=== PATIENT | male | born 1960 | race Caucasian/White ===

== ENCOUNTER 2017-01-06 09:18 | Emergency (ER) | payer OTHER ==
--- NOTE | 2017-01-06 12:48 | ED CLINICAL REPORT ---
Clinical Report - Physicians/Mid Levels [facility] [address] [place] [address] 01/06/2017 9:20 Patient: CHEL FLORES Time Seen: 0948. Arrived- By private vehicle. Historian- patient. HISTORY OF PRESENT ILLNESS Chief Complaint: VOMITING and DIARRHEA. This started past few days and is still present. It was abrupt in onset and has been intermittent but is not gone now. No recent travel. He has had nausea, vomiting, diarrhea and mild abdominal pain. The pain is described as located in the epigastrium. No black stools, bloody stools, constipation, flank pain or history of possible bad food exposure. Has not recently been camping or on antibiotics. He has had contact with a sick individual. (possibly at work ([employer])). The illness is described as severe. Similar symptoms previously: None. Recent medical care: Not recently seen/assessed. REVIEW OF SYSTEMS No headache or skin rash. All systems otherwise negative, except as recorded above. PAST HISTORY See nurses notes. Medications: Hydrocodone-Acetaminophen Oral. Meloxicam Oral. Allergies: Codeine. SOCIAL HISTORY Never smoker. No alcohol use or drug use. No recent travel. Is a local resident. works at the [employer]. FAMILY HISTORY (no family history of autoimmune disease or inflammatory bowel disease). ADDITIONAL NOTES The nursing notes have been reviewed. PHYSICAL EXAM Vital Signs: 01/06/2017 09:28 BP: 125/76. HR: 76. RR: 18. O2 saturation: 100%. Temp: 97.9 F. Pain level now: 7/10. Blood pressure normal. Oxygen saturation normal. Appearance: Alert. Oriented X3. No acute distress. (well build. muscular. polite. cooperative. non-toxic.). Eyes: Pupils equal, round and reactive to light. Eyes normal inspection. ENT: Ears normal. Nose normal. Pharynx normal. Neck: Normal inspection. Neck supple. CVS: Normal heart rate and rhythm. Heart sounds normal. Pulses normal. Respiratory: No respiratory distress. Breath sounds normal. No rales, rhonchi or wheezes. Abdomen: Soft and nontender. No mass. No rebound tenderness or guarding. (hyperactive bowel sounds. Negative stone's. No tenderness at Mcburney's.). Skin: Skin warm and dry. Normal skin color. No rash. Normal skin turgor. LABS, X-RAYS, AND EKG Laboratory Tests: UA-Culture if indicated: (TRAVON: 01/06/2017 10:50) ( [facility] 01/06/2017 11:37) Final results Test Result Flag Units (Reference) URINE COLOR ANNETTA URINE APPEARANCE CLEAR URINE GLUCOSE NEGATIVE (NEGATIVE) URINE BILIRUBIN NEGATIVE (NEGATIVE) URINE KETONE NEGATIVE (NEGATIVE) URINE SPECIFIC GRAVITY >= 1.030 (1.010-1.030) URINE PH 6.0 (5.0-8.0) URINE PROTEIN 2+ (NEGATIVE) URINE UROBILINOGEN 0.2 EU/dL (0.2-1.0) URINE NITRITE NEGATIVE (NEGATIVE) URINE BLOOD NEGATIVE (NEGATIVE) URINE LEUK ESTERASE NEGATIVE (NEGATIVE) URINE RBC RARE rbc/hpf (0-1) URINE WBC 3-5 wbc/hpf (0-1) URINE EPITHELIAL CELLS 0-1 EPI/hpf (0-5) URINE BACTERIA MODERATE (2+ TO 3+) (NONE SEEN) URINE COMMENT CULTURE INDICATED 2+ MUCUS1-3 HYALINE CASTS / LPFRARE FINE GRANULAR CAST /LPFURINE CULTURES ARE SET-UP BASED ON THE FOLLOWING CRITERIA:POSITIVE NITRITEPOSITIVE LEUKOCYTE ESTERASEGREATER THAN 10 WHITE BLOOD CELLSMODERATE (2+) OR GREATER BACTERIA CBC w Diff: (TRAVON: 01/06/2017 09:40) ( [facility] 01/06/2017 10:02) Final results Test Result Flag Units (Reference) WHITE BLOOD COUNT 8.8 K/uL (4.5-11.5) RED BLOOD COUNT 5.65 M/uL (4.50-5.90) HEMOGLOBIN 17.1 gm/dL (13.5-17.5) HEMATOCRIT 49.6 % (41.0-53.0) MEAN CELL VOLUME 88 fL (80-100) MEAN CORPUSCULAR HGB 30 pg (26-34) MEAN CORPUSCULAR HGB CONC 34 g/dL (31-37) RED CELL DISTRIBUTION WIDTH 12.3 % (11.6-14.8) PLATELET COUNT 246 K/uL (150-400) NEUTROPHIL % 92.4 H % (50-75) LYMPH % 2.8 L % (25-40) MONO % 4.6 % (3-14) EOSINOPHIL % 0.2 % (0-4) BASOPHIL % 0 % (0-2) CPK: (TRAVON: 01/06/2017 09:40) ( MsgRcvd 01/06/2017 11:09) Final results Test Result Flag Units (Reference) CPK 185 U/L (24-260) CMP: (TRAVON: 01/06/2017 09:40) ( MsgRcvd 01/06/2017 10:10) Final results Test Result Flag Units (Reference) GLUCOSE 128 H mg/dL (70-110) BUN 25 H mg/dL (7-18) CREATININE 1.1 mg/dL (0.6-1.3) Estimated GFR >60 mL/min Estimated GFR- >60 mL/min Note: Persistent reduction over 3 months in eGFR<60 mL/min/1.73 m2 defines CKD. Patients with eGFR values>=60 mL/min/1.73 m2 may also have CKD if evidence ofpersistent proteinuria. Additional information may be foundat www.kidney.org. SODIUM 142 mmol/L (136-145) POTASSIUM 4.2 mmol/L (3.5-5.1) CHLORIDE 106 mmol/L (98-107) CARBON DIOXIDE 24 mmol/L (21-32) CALCIUM 9.7 mg/dL (8.5-10.1) TOTAL PROTEIN 8.9 H g/dL (6.4-8.2) ALBUMIN 4.4 g/dL (3.3-5.0) BILIRUBIN, TOTAL 1.0 mg/dL (0.0-1.0) ALKALINE PHOSPHATASE 73 U/L (46-116) AST (SGOT) 37 U/L (15-37) ALT (SGPT) 52 U/L (12-78) LIPASE 112 U/L (73-393) . PROGRESS AND PROCEDURES Course of Care: the patient is a pleasant 56-year-old male no pertinent past medical history presenting for a vaginal nausea vomiting and diarrhea. At this time differential diagnosis includes gastritis versus hepatobiliary pathology or urinary tract infection. Patient will be given fluids here in the emergency department for thelikely dehydration from the amount of nausea and vomiting patient has been having as well as diarrhea. Medications for nausea and vomiting as well as pain also be provided. Patient is agreeable to the treatment and plan. Patient's workup was noted to be unremarkable. No elevation in Patient's white blood cell count. Hemoglobin and hematocrit noted to be normal. No urinary tract infection. Patient does have adequate kidney function however the BUN/creatinine ratio is greater than 20. Likely patient has prerenal azotemia. Will likely improve with the IV hydration patient has been receiving here in the emergency department. Patient had some improvement with symptoms here in the emergency department however needed additional medication while here. Vital signs here in the emergency Department unremarkable. Patient was offered to stay here longer in the emergency department for further monitoring and watching however patient does not need to be admitted at this time. Head discussion with patient in regards his workup here in the emergency department including diagnosis, home care, follow-up, and return precautions. All questions have been answered. The patient expressed understanding of these instructions and was agreeable to them. Prior to patient's departure from the emergency department his repeat abdominal exam is benign. No other acute abnormalities noted on patient's repeat evaluation. Patient is stable for outpatient management. Vital signs here in the emergency department remain normal. Patient was contacted on [phone] at approximately 9:30 PM. Patient reports having worsening diarrhea yesterday however has improved today. Patient reports that he has a follow-up appointment tomorrow. Patient reports that his symptoms are controlled. No blood or bile in the vomit or diarrhea. Reports that the vomiting has significantly improved. Does not need any refills of medications. No further concerns. Disposition: Discharged. Condition: good. CLINICAL IMPRESSION Vomiting with nausea. Diarrhea (acute). Acute epigastric abdominal pain. Moderate dehydration Acute urinary tract infection. INSTRUCTIONS Warnings: GENERAL WARNINGS: Return or contact your physician immediately if your condition worsens or changes unexpectedly, if not improving as expected, or if other problems arise. SPECIFICALLY, return if you develop pain, fever, vomiting, the inability to keep fluids down, blood in vomitus, blood in diarrhea, fainting or lightheadedness. Your Current Medications: CONTINUE TAKING THE FOLLOWING MEDICATIONS: Hydrocodone-Acetaminophen Oral. Meloxicam Oral. Prescription Medications: Cipro 500 mg: take 1 tab orally every 12 hours for 10 days. No refills. Substitution is permissible. (Disp 20 tabs) Concord 5 mg / 325 mg tablets: take 1 orally every 6 hours as needed for pain. Dispense twelve (12). No refill. Substitution is permissible. Phenergan 25 mg tablets: take 1 orally every 8 hours as needed for nausea or vomiting. Dispense twenty (20). No refill. Substitution is permissible. (Will make you sleepy. Use with caution.) Follow-up: Return to the emergency department as needed. Follow up with your doctor in three days. Reason for referral: recheck today's concerns. Summary of care provided to patient via paper. Screening today revealed the patient's blood pressure to be in the normal range. The patient should follow up with a primary care provider for blood pressure management. Understanding of the discharge instructions verbalized by patient. (Electronically signed by Siva Ramirez Dr. 01/08/2017 21:37) Addenda for CHEL FLORES VisitID: [id number] Date: 01/06/2017 01/06/2017 15:52 Pts called, stated pt is having loose stool (5 times) ERMD aware, told to try Immodium. Also advised to return to ER if pt is not feeling better. (Electronically signed by Quincy Mcclelland R.N. 01/06/2017 15:52)
--- NOTE | 2017-01-06 12:49 | ED ORDER SUMMARY ---
..... Patient: CHLE FLORES OrderSheet [facility] VisitID: [id number] [place] [address] 56y, M Registration Date/Time: 01/06/2017 ORDER SHEET Weight: 86.1 kg (stated) Allergies: Codeine GENERAL ORDERS: CBC w Diff Urgent (09:36 01/06/2017 JBoardley R.N. per protocol) (Ack 9:38 PWeiler ER Tech1) (9:42 JSanders R.N.) CMP Urgent (09:36 01/06/2017 JBoardley R.N. per protocol) (Ack 9:38 PWeiler ER Tech1) (9:42 JSanders R.N.) UA-Culture if indicated Urgent (09:47 01/06/2017 JBoardley R.N. per protocol) (Ack 9:49 PWeiler ER Tech1) (10:53 JBoardley R.N.) Lipase Urgent (09:53 01/06/2017 Jhony Bernal) (Ack 9:56 PWeiler ER Tech1) (10:15 JBoardley R.N.) CPK Urgent (10:53 01/06/2017 Jhony Bernal) (10:53 JBoardley R.N.) (Ack 10:54 PWeiler ER Tech1) MEDICATION ORDERS: Phenergan IV 25 mg (HIGH ALERT MEDICATION, NOW) (10:45 01/06/2017 Jhony Bernal) (Ack 10:46 JBoardley R.N.) (10:53 JBoardley R.N.) IV FLUIDS: IV NS : initial bolus none -, then 1000 mL/hr for X1 (NOW) (09:35 01/06/2017 JBoardley R.N. per protocol) (Ack 9:36 JBoardley R.N.) (9:47 JBoardley R.N.) Zofran IV 4 mg (NOW) (09:36 01/06/2017 JBoardley R.N. per protocol) (Ack 9:36 JBoardley R.N.) (9:47 JBoardley R.N.) IV NS : initial bolus 1000 mL (1000 mL/hr), then none - for X1 (NOW) (09:53 01/06/2017 Jhony Bernal) (Ack 9:57 JBoardley R.N.) (Cancelled: Duplicate Order9:58 JBoardley R.N.) Zofran IV 4 mg (NOW) (09:53 01/06/2017 Jhony Bernal) (Cancelled: Duplicate Order9:57 LEONoardlekrishna R.N.) IV NS : initial bolus none -, then 1000 mL/hr for X1 (NOW); Routine (10:14 01/06/2017 JBoardley R.N. verbal order read back to Jhony Bernal) (10:15 JBoardley R.N.) Morphine IV 4 mg (HIGH ALERT MEDICATION, NOW) (10:57 01/06/2017 Jhony Bernal) (Ack 10:57 JBoardley R.N.) (11:00 JBoardley R.N.) ORDER SHEET NOTES: [Electronically signed by Quincy Mcclelland R.N. (13:08 01/06/2017)] [Electronically signed by Siva Ramirez Dr. (21:37 01/08/2017)] [Electronically locked/signed by Quincy Mcclelland R.N. (13:08 01/06/2017)]
--- NOTE | 2017-01-06 12:49 | ED ORDER SUMMARY ---
..... Patient: CHEL FLORES OrderSheet [facility] VisitID: [id number] [place] [address] 56y, M Registration Date/Time: 01/06/2017 ORDER SHEET Weight: 86.1 kg (stated) Allergies: Codeine GENERAL ORDERS: CBC w Diff Urgent (09:36 01/06/2017 JBoardley R.N. per protocol) (Ack 9:38 PWeiler ER Tech1) (9:42 JSanders R.N.) CMP Urgent (09:36 01/06/2017 JBoardley R.N. per protocol) (Ack 9:38 PWeiler ER Tech1) (9:42 JSanders R.N.) UA-Culture if indicated Urgent (09:47 01/06/2017 JBoardley R.N. per protocol) (Ack 9:49 PWeiler ER Tech1) (10:53 JBoardley R.N.) Lipase Urgent (09:53 01/06/2017 Jhony Bernal) (Ack 9:56 PWeiler ER Tech1) (10:15 JBoardley R.N.) CPK Urgent (10:53 01/06/2017 Jhony Bernal) (10:53 JBoardley R.N.) (Ack 10:54 PWeiler ER Tech1) MEDICATION ORDERS: Phenergan IV 25 mg (HIGH ALERT MEDICATION, NOW) (10:45 01/06/2017 Jhony Bernal) (Ack 10:46 JBoardley R.N.) (10:53 JBoardley R.N.) IV FLUIDS: IV NS : initial bolus none -, then 1000 mL/hr for X1 (NOW) (09:35 01/06/2017 JBoardley R.N. per protocol) (Ack 9:36 JBoardley R.N.) (9:47 JBoardley R.N.) Zofran IV 4 mg (NOW) (09:36 01/06/2017 JBoardley R.N. per protocol) (Ack 9:36 JBoardley R.N.) (9:47 JBoardley R.N.) IV NS : initial bolus 1000 mL (1000 mL/hr), then none - for X1 (NOW) (09:53 01/06/2017 Jhony Bernal) (Ack 9:57 JBoardley R.N.) (Cancelled: Duplicate Order9:58 JBoardley R.N.) Zofran IV 4 mg (NOW) (09:53 01/06/2017 Jhony Bernal) (Cancelled: Duplicate Order9:57 LEONoardlekrishna R.N.) IV NS : initial bolus none -, then 1000 mL/hr for X1 (NOW); Routine (10:14 01/06/2017 JBoardley R.N. verbal order read back to Jhony Bernal) (10:15 JBoardley R.N.) Morphine IV 4 mg (HIGH ALERT MEDICATION, NOW) (10:57 01/06/2017 Jhony Bernal) (Ack 10:57 JBoardley R.N.) (11:00 JBoardley R.N.) ORDER SHEET NOTES: [Electronically signed by Quincy Mcclelland R.N. (13:08 01/06/2017)] [Electronically signed by Siva Ramirez Dr. (21:37 01/08/2017)] [Electronically locked/signed by Quincy Mcclelland R.N. (13:08 01/06/2017)]
--- NOTE | 2017-01-06 12:49 | ED NURSING NOTES ---
Clinical Report - Nurses [facility] [address] [place] [address] 01/06/2017 9:20 [id number] Triage time 09:28. Acuity: LEVEL 3. Chief Complaint: ABDOMINAL PAIN, NAUSEA, VOMITING and DIARRHEA and (Leg cramps and confusion.). 09:29 01/06/17. 09:01/06/17. Alert. No acute distress. SEPSIS SCREEN: Sepsis Screen. Negative (no infection suspected/documented). --09:35 Quincy Mcclelland R.N. 09:28 01/06/17. BP: 125/76. HR: 76. RR: 18. O2 saturation: 100% on room air. Temp: 97.9 F (oral). Pain level now: 03/31. --09:35 Quincy Mcclelland R.N. SERGEY COMA SCORE: [place] Coma Scale: 15- eyes open spontaneously (4); best verbal response- oriented x 4 (5); best motor response- obeys commands (6). --09:37 Quincy Mcclelland R.N. Weight: 86.1 kg stated. Height/Length: 72 inches Per Patient. BMI: 25.8. --09:29 Quincy Mcclelland R.N. Medications Meloxicam Oral. --09:30 Quincy Mcclelland R.N. Hydrocodone-Acetaminophen Oral. --09:31 Quincy Mcclelland R.N. Allergies Codeine. --09:31 Quincy Mcclelland R.N. History Arrived by private vehicle. Historian: patient. Accompanied by family. Primary physician ([facility]). 09:29 01/06/17. This started last night. 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 PAST MEDICAL HX: Immunizations not up to date. SOCIAL HX: Never smoker. Occasional alcohol use. No drug use. No recent travel. No infectious disease exposure. No known contact with a sick individual. ABUSE ASSESSMENT: No report of abuse. FALL RISK ASSESSMENT: Fall risk assessment completed. No fall risk identified. NUTRITIONAL RISK ASSESSMENT: The nutritional risk assessment revealed no deficiencies. FUNCTIONAL ASSESSMENT: Functional assessment: no impairments noted. LEARNING NEEDS ASSESSMENT: The learning needs assessment revealed no barriers. SKIN INTEGRITY ASSESSMENT: Skin integrity risk assessment completed. No skin integrity risk identified. --09:35 Quincy Mcclelland R.N. PROBLEMS: Neuropathy. --09:31 Quincy Mcclelland R.N. ADDITIONAL SURGERIES: Knee Surgery. --09:31 Quincy Mcclelland R.N. Assessment 09:01/06/17. --09:35 Quincy Mcclelland R.N. Interventions 09:01/06/17. 09:01/06/17. ID and allergy band on patient. To treatment room. --09:35 Quincy Mcclelland R.N. PHYSICAL ASSESSMENT 09:01/06/17. Ambulatory to room. GENERAL / NEURO / PSYCH: Appears in pain. RESPIRATORY: Respirations not labored. CVS: Capillary refill less than 2 seconds. SKIN: Skin is warm and dry. --09:32 Quincy Mcclelland R.N. NURSING PROGRESS NOTES 09:32 01/06/17. The plan of care for this patient has been created. Patient gowned. Head of bed elevated. Reassurance given. Call light placed in reach. Side rails up x 2. Bed placed in lowest position. Brakes of bed on. Brakes of chair on. Patient ready for evaluation- chart flagged and notification provided. --09:32 Quincy Mcclelland R.N. 09:37 01/06/17. Pulse oximeter and NIBP monitor placed on patient; monitor alarms on. --09:37 Quincy Mcclelland R.N. 09:38 01/06/2017 Site #1 started via IV in the left forearm with an 20g angiocath, with aseptic technique and good blood return; one attempt. Blood drawn: rainbow set. Labeled in the presence of the patient and sent to the lab. Saline lock flushed with 10 mL saline. --09:43 Prisca Carvalho R.N. 09:46 01/06/2017 Started bag #1 1000 mL IV Fluids IV NS (Saline); at 1000 mL/hr over 1 hour(s) via site #1. Allergies verified and confirmed 5 rights. IV patency established. IV site checked: no pain, redness, or swelling. IV flushed thoroughly pre- and post-medication administration. Completed per protocol. --09:47 Quincy Mcclelland R.N. 09:47 01/06/2017 Zofran (Ondansetron HCl) IVP 4 mg given over 2 minute(s) via site #1. Allergies verified and confirmed 5 rights. IV patency established. IV site checked: no pain, redness, or swelling. IV flushed thoroughly pre- and post-medication administration. IVP given by RN. --09:47 Quincy Mcclelland R.N. <<STRICKEN ENTRY-- 10:06 01/06/17. ( RT in with patient for breathing treatment). --10:06 Prisca Carvalho R.N. --END STRIKE>> Charted On Wrong Patient --10:07 Prisca Carvalho R.N. 10:13 01/06/17. --10:13 Quincy Mcclelland R.N. 10:13 01/06/17. BP: 119/75. HR: 79. RR: 15. O2 saturation: 100% on room air. --10:13 Quincy Mcclelland R.N. 10:13 01/06/17. Reassessment after medication administered. He has had no adverse reaction. Overall patient status- he states feels better. --10:13 Quincy Mcclelland R.N. 10:15 01/06/2017 Started bag #2 1000 mL IV Fluids IV NS (Saline); at 1000 mL/hr over 1 hour(s) via site #1 via IV pump. Allergies verified and confirmed 5 rights. Completed per protocol. --10:15 Quincy Mcclelland R.N. 10:15 01/06/17. Patient and family informed about reason for wait and about plan of care. --10:15 Quincy Mcclelland R.N. 10:40 01/06/17. --10:40 Quincy Mcclelland R.N. 10:40 01/06/17. BP: 120/80. HR: 80. RR: 14. O2 saturation: 97% on room air. --10:40 Quincy Mcclelland R.N. 10:41 01/06/17. Patient and family informed about reason for wait and about plan of care. Patient waiting for lab results. --10:41 Quincy Mcclelland R.N. 10:43 01/06/2017 IV Fluids IV NS Discontinued: bag #1 infused. Total amount infused: 1000 mL. IV patency established. IV site checked: no pain, redness, or swelling. IV flushed thoroughly. --10:44 Quincy Mcclelland R.N. 10:43 01/06/17. ( Pt up to void). --10:43 Quincy Mcclelland R.N. 10:44 01/06/2017 Zofran IVP Response: symptoms have improved. --10:44 Quincy Mcclelland R.N. 10:53 01/06/2017 PHENERGAN (Promethazine HCl) IVP 25 mg given over 3 minute(s) via site #1. Allergies verified and confirmed 5 rights. IV patency established. IV site checked: no pain, redness, or swelling. IV flushed thoroughly pre- and post-medication administration. IVP given by RN. --10:53 Quincy Mcclelland R.N. 11:00 01/06/2017 Morphine IVP 2 mg given over 2 minute(s) via site #1. 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 IV patency established. IV site checked: no pain, redness, or swelling. IV flushed thoroughly pre- and post-medication administration. IVP given by RN. --11:00 Quincy Mcclelland R.N. 11:01/06/17. Patient ID band checked for patient name and birthdate. Instructions provided to collect clean catch urine and patient verbalized understanding. Clean catch urine collected with return of zaire-colored urine; sample sent to lab for urinalysis and culture. Specimen labeled in the presence of the patient. --11:01 Quincy Mcclelland R.N. 11:17 01/06/17. Reassessment after medication administered. He is sleeping and has had no adverse reaction. --11:17 Quincy Mcclelland R.N. 11:45 01/06/2017 Morphine IVP Response: the patient feels the same. --11:50 Quincy Mcclelland R.N. 11:47 01/06/2017 IV Fluids IV NS Discontinued: bag #2 infused. Total amount infused: 1000 mL. IV patency established. IV site checked: no pain, redness, or swelling. IV flushed thoroughly. --11:52 Quincy Mcclelladn R.N. 11:47 01/06/17. Reassessment after medication administered. He has had no adverse reaction. Overall patient status is improved- he states feels better. --11:47 Quincy Mcclelland R.N. 11:47 01/06/17. Patient waiting for lab results. --11:47 Quincy Mcclelland R.N. 11:47 01/06/17. Patient waiting for disposition. --11:47 Quincy Mcclelland R.N. 11:50 01/06/2017 Morphine IVP 2 mg given. via site #1. Allergies verified, confirmed 5 rights and sedative warning given to the patient and patient's family. IV patency established. IV site checked: no pain, redness, or swelling. IV flushed thoroughly pre- and post-medication administration. IVP given by RN. --11:51 Quincy Mcclelland R.N. 12:01/06/17. Patient and family informed about reason for wait and about plan of care. --12:02 Quincy Mcclelland R.N. 12:02 01/06/17. Patient waiting for disposition. --12:02 Quincy Mcclelland R.N. 12:39 01/06/17. Patient waiting for disposition. --12:39 Quincy Mcclelland R.N. DISPOSITION / DISCHARGE 12:46 01/06/2017 Site #1 removed upon discharge. Catheter intact. --12:46 Quincy Mcclelland R.N. 12:47 01/06/17. Condition at departure: improved. The goals identified in the patient's plan of care were met. No learning barriers present. Discharge instructions provided and reviewed with the patient and spouse. Reviewed warnings. Reviewed medication(s). Treatments reviewed. Patient and spouse verbalized understanding. Written instructions provided in Moldovan. The patient was discharged by the physician. He was discharged home and accompanied by spouse. He left the Emergency Department ambulatory and via private vehicle. Spouse driving. FALL RISK ASSESSMENT: Fall risk assessment completed. No fall risk identified. --12:47 Quincy Mcclelland R.N. 12:46 01/06/17. BP: 118/70. HR: 76. RR: 14. O2 saturation: 100% on room air. Temp: 97.8 F (oral). Pain level now: 11/29. --12:47 Quincy Mcclelland R.N. 12:54 01/06/17. Departure time: 12:54. --12:54 Quincy Mcclelland R.N. Locked/Released at 01/06/2017 13:08 by Quincy Mcclelland R.N.
--- NOTE | 2017-01-08 21:37 | ED DISCHARGE INSTRUCTIONS ---
Patient: CHEL FLORSE General Instructions [facility] VisitID: [id number] [place] [address] 56y, M Registration Date/Time: 01/06/2017 Vomiting with nausea. Diarrhea (acute). Acute epigastric abdominal pain. Moderate dehydration Acute urinary tract infection. INSTRUCTIONS Warnings: GENERAL WARNINGS: Return or contact your physician immediately if your condition worsens or changes unexpectedly, if not improving as expected, or if other problems arise. SPECIFICALLY, return if you develop pain, fever, vomiting, the inability to keep fluids down, blood in vomitus, blood in diarrhea, fainting or lightheadedness. Your Current Medications: CONTINUE TAKING THE FOLLOWING MEDICATIONS: Hydrocodone-Acetaminophen Oral. Meloxicam Oral. Prescription Medications: Cipro 500 mg: take 1 tab orally every 12 hours for 10 days. No refills. Substitution is permissible. (Disp 20 tabs) Potosi 5 mg / 325 mg tablets: take 1 orally every 6 hours as needed for pain. Dispense twelve (12). No refill. Substitution is permissible. Phenergan 25 mg tablets: take 1 orally every 8 hours as needed for nausea or vomiting. Dispense twenty (20). No refill. Substitution is permissible. (Will make you sleepy. Use with caution.) Follow-up: Return to the emergency department as needed. Follow up with your doctor in three days. Reason for referral: recheck today's concerns. Summary of care provided to patient via paper. Screening today revealed the patient's blood pressure to be in the normal range. The patient should follow up with a primary care provider for blood pressure management. Understanding of the discharge instructions verbalized by patient. ADDITIONAL INFORMATION Vomiting [6Yr-Adult] Vomiting is a common symptom that may be due to different causes. These include gastroenteritis ("stomach flu"), food poisoning and gastritis. There are other more serious causes of vomiting which may be hard to diagnose early in the illness. Therefore, it is important to watch for the warning signs listed below. The main danger from repeated vomiting is dehydration. This is due to excess loss of water and minerals from the body. When this occurs, body fluids must be replaced. Home Care: If symptoms are severe, rest at home for the next 24 hours. You may use acetaminophen (Tylenol) or ibuprofen (Motrin, Advil) to control fever, unless another medicine was prescribed. [NOTE : If you have chronic liver or kidney disease or ever had a stomach ulcer or GI bleeding, talk with your doctor before using these medicines.] (Aspirin should never be used in anyone under 18 years of age who is ill with a fever. It may cause severe liver damage.) Avoid tobacco and alcohol use, which may worsen your symptoms. If medicines for vomiting were prescribed, take as directed. Once vomiting stops, then follow these guidelines: During The First 12-24 Hours follow the diet below: FRUIT JUICES: Apple, grape juice, clear fruit drinks, and electrolyte replacement drinks. BEVERAGES: Soft drinks without caffeine; mineral water (plain or flavored), decaffeinated tea and coffee. SOUPS: Clear broth, consomm and bouillon DESSERTS: Plain gelatin, popsicles and fruit juice bars. As you feel better, you may add 6-8 ounces of yogurt per day. During The Next 24 Hours you may add the following to the above: Hot cereal, plain toast, bread, rolls, crackers Plain noodles, rice, mashed potatoes, chicken noodle or rice soup Unsweetened canned fruit (avoid pineapple), bananas Limit caffeine and chocolate. No spices or seasonings except salt. During The Next 24 Hours Gradually resume a normal diet, as you feel better and your symptoms lessen. Follow Up with your doctor as advised if you are not improving over the next 2-3 days. Get Prompt Medical Attention if any of the following occur: Constant right-sided lower abdominal pain or increasing general abdominal pain Continued vomiting (unable to keep liquids down) for 24 hours Frequent diarrhea (more than 5 times a day); blood (red or black color) or mucus in diarrhea Reduced urine output or extreme thirst Weakness, dizziness or fainting Unusually drowsy or confused Fever of 100.4F (38C) oral or higher, not better with fever medication Yellow color of the eyes or skin Diarrhea, Uncertain Cause (Adult, Report Pending) Diarrhea has several possible causes. Commonstomach fluis caused by a virus. Food poisoning, bacteria or parasites are other causes for diarrhea. Only diarrhea caused by bacteria or parasites requires treatment with an antibiotic. Diarrhea from a virus or food poisoning improves with simple home treatment. A stool sample is needed to make the diagnosis of an infection with bacteria or parasites. Up to three stool specimens may be required to diagnose This may take up to two days to get the result. It may be necessary to wait until the stool test is complete to make the diagnosis and select the best antibiotic to prescribe. Home Care: If symptoms are severe, rest at home for the next 24 hours or until you are feeling better. You may use acetaminophen (Tylenol) or ibuprofen (Motrin, Advil) to control fever, unless another medicine was prescribed. [NOTE: If you have chronic liver or kidney disease or ever had a stomach ulcer or GI bleeding, talk with your doctor before using these medicines.] (Aspirin should never be used in anyone under 18 years of age who is ill with a fever. It may cause severe liver damage.) Avoid tobacco, caffeine and alcohol, which may worsen your symptoms. If anti-diarrhea medicine was prescribed, take this only as directed. Sometimes anti-diarrhea medicine can make your condition worse if the cause is an infectious diarrhea. Therefore, anti-diarrhea medicine should not be taken for this condition unless advised by your doctor. During The First 12-24 Hours follow the diet below: BEVERAGES: Sport drinks like Gatorade, soft drinks without caffeine; lucia roberto, mineral water (plain or flavored), decaffeinated tea and coffee. SOUPS: Clear broth, consomm and bouillon DESSERTS: Plain gelatin (Jell-O), popsicles and fruit juice bars. During The Next 24 Hours you may add the following to the above: Hot cereal, plain toast, bread, rolls, crackers Plain noodles, rice, mashed potatoes, chicken noodle or rice soup Unsweetened canned fruit (avoid pineapple), bananas Limit fat intake to less than 15 grams per day by avoiding margarine, butter, oils, mayonnaise, sauces, gravies, fried foods, peanut butter, meat, poultry and fish. Limit fiber; avoid raw or cooked vegetables, fresh fruits (except bananas) and bran cereals. Limit caffeine and chocolate. No spices or seasonings except salt. During The Next 24 Hours Gradually resume a normal diet, as you feel better and your symptoms lessen. Follow Up with your doctor or as advised if you are not improving over the next two days. If you were asked to bring a specimen from home, bring the sample on the day of collection. You may call in 2 days (or as directed) for the results. Get Prompt Medical Attention if any of the following occur: Increasing abdominal pain or constant lower right abdominal pain Continued vomiting (unable to keep liquids down) Frequent diarrhea (more than 5 times a day) Blood in vomit or stool (black or red color) Reduced oral intake Dark urine, reduced urine output Weakness, dizziness, fainting Drowsiness, confusion, stiff neck or seizure Fever of 100.4F (38C) oral or higher, not better with fever medication New rash Abdominal Pain,Uncertain Cause [Male] Based on your visit today, the exact cause of your abdominalpain is not clear. Your exam and tests do not indicate a dangerous cause at this time. However, the signs of a serious problem may take more time to appear. Although your evaluation was reassuring today, sometimes early in the course of many conditions, exam and lab tests can appear normal. Therefore, it is important for you to watch for any new symptoms or worsening of your condition. Causes It may not be obvious what caused your symptoms. Pay attention to things that do seem to make your symptoms worse or better and discuss this with your doctor when you follow up. Diagnosis The evaluation of abdominal pain in the emergency department may onlyrequire an exam by the doctor or it may include blood, urine or imaging studies, depending on many factors. Sometimes exams and tests can identify a cause but in many cases, a clear cause is not found. Further testing at follow up visits may help to suggest a clear diagnosis. Home Care Rest as much as possible until your next exam. Try to avoid any medications (unless otherwise directed by your doctor), foods, activities, or other factors that you may have contributed to your symptoms. Try to eat foods that you know that you have tolerated well in the past. Certain diets may be recommended for some conditions that cause abdominal pain. However, since the cause of your symptoms may not be clear, discuss your diet more with your primary care provider or specialist for further recommendations. Eating several small meals per day as opposed to 2 or 3 larger meals may help. Monitor closely for anything that may make your symptoms worse or better. Pay close attention to symptoms below that may indicate worsening of your condition. Follow Up and Precautions See your doctoras instructed or sooneror if your symptoms are not improving.In some cases, you may need more testing. When to Seek Medical Attention Contact your doctor or see medical attention ifany of the following occur: Pain is becoming worse You are unable to take your medications due to excessive vomiting Swelling of the abdomen Fever of 100.4F (38C) or higher, or as directed by your health care provider Blood in vomit or bowel movements (dark red or black color) Jaundice (yellow color of eyes and skin) New onset of weakness, dizziness or fainting New onset of chest, arm, back, neck or jaw pain Bladder Infection,Male (Adult) A bladder infection ("cystitis" or "UTI") usually causes a constant urge to urinate, and a burning when passing urine. Urine may be cloudy, smelly or dark. There may be also be pain in the lower abdomen. Cystitis in males is not common. It may be caused by a partial blockage in the urinary system that keeps the bladder from emptying completely. This is most often related to an enlarged prostate gland. Home Care: Drink lots of fluids (at least 6-8 glasses a day). This will flush the bacteria out of your bladder. Avoid sexual intercourse until your symptoms are gone. Avoid caffeine, alcohol, and spicy foods. They could irritate the bladder. A bladder infection is treated with antibiotics. You may also be given Pyridium (generic - phenazopyridine) to reduce burning with urination. This will cause urine to become a bright orange color, which can stain clothing. Follow Up with your doctor or this facility if ALL symptoms have not cleared within five days. It is important to keep your follow up appointment to discuss with your doctor the need for further tests of the urinary tract. Get Prompt Medical Attention if any of the following occur: Fever of 100.4F (38C) or higher, or as directed by your healthcare provider No improvement by the third day of treatment Increasing back or abdominal pain Repeated vomiting; unable to keep medicine down Weakness, dizziness or fainting Dehydration (Adult) Dehydration occurs when your body loses too much fluid. This may be the result of vomiting a lot or from diarrhea,sweating a lot, or a high fever. It may also happen if you dont drink enough fluid when youre sick. Misuse of diuretics (water pills) can also be a cause. Symptoms include thirst and feeling dizzy, weak, fatigued, or very drowsy. The diet described below is usually enough to treat most cases. Sometimes you may needmedicine. Home Care Follow these guidelines for home care: Drink at least 12 8-ounce glasses of fluid every day to overcome the dehydration. Fluid may include water; orange juice; lemonade; apple, grape, and cranberry juice; clear fruit drinks; electrolyte replacement and sports drinks; and teas and coffee without caffeine. If you have been diagnosed with a kidney disease, ask your doctor how much and what types of fluids you should drink to prevent dehydration. If you have kidney disease, drinking too much fluid can cause it build up in the your body and be dangerous to your health. If you have fever, muscle aching, or headache from a viral syndrome, you may useacetaminophen or ibuprofen, unless another medicine was prescribed for this.If you have chronic liver or kidney disease or ever had a stomach ulcer or GI bleeding, talk with your doctor before using these medicines. Don't take aspirin if you are younger than 18 and are ill with a fever.Aspirin raises the chance forsevere liver injury. Follow-up care Follow up with your health care provider if you don't get better in the next 24 to 48 hours. When to seek medical care Get prompt medical attention if any of theseoccur: Continued vomiting (cant keep liquids down) Frequent diarrhea (more than 5 times a day); blood (red or black color) or mucus in diarrhea Blood in vomit or stool Swollen abdomen or increasing abdominal pain Weakness, dizziness, or fainting Unusually drowsy or confused Reduced urine output or extreme thirst Fever of 100.4 F (38 C) oral or higher that does not get better with fever medication Ciprofloxacin Hydrochloride Oral tablet What is this medicine? CIPROFLOXACIN (sip oziel FLOX a sin) is a quinolone antibiotic. It is used to treat certain kinds of bacterial infections. It will not work for colds, flu, or other viral infections. How should I use this medicine? Take this medicine by mouth with a glass of water. Follow the directions on the prescription label. Take your medicine at regular intervals. Do not take your medicine more often than directed. Take all of your medicine as directed even if you think your are better. Do not skip doses or stop your medicine early. You can take this medicine with food or on an empty stomach. It can be taken with a meal that contains dairy or calcium, but do not take it alone with a dairy product, like milk or yogurt or calcium-fortified juice. A special MedGuide will be given to you by the pharmacist with each prescription and refill. Be sure to read this information carefully each time. Talk to your commercial sales representative regarding the use of this medicine in children. Special care may be needed. What side effects may I notice from receiving this medicine? Side effects that you should report to your doctor or health medical care administrator as soon as possible: - allergic reactions like skin rash, itching or hives, swelling of the face, lips, or tongue - breathing problems - confusion, nightmares or hallucinations - feeling faint or lightheaded, falls - irregular heartbeat - joint, muscle or tendon pain or swelling - pain or trouble passing urine -persistent headache with or without blurred vision - redness, blistering, peeling or loosening of the skin, including inside the mouth - seizure - unusual pain, numbness, tingling, or weakness Side effects that usually do not require medical attention (report to your doctor or health medical care administrator if they continue or are bothersome): - diarrhea - nausea or stomach upset - white patches or sores in the mouth What may interact with this medicine? Do not take this medicine with any of the following medications: cisapride droperidol terfenadine tizanidine This medicine may also interact with the following medications: antacids caffeine cyclosporin didanosine (ddI) buffered tablets or powder medicines for diabetes medicines for inflammation like ibuprofen, naproxen methotrexate multivitamins omeprazole phenytoin probenecid sucralfate theophylline warfarin What if I miss a dose? If you miss a dose, take it as soon as you can. If it is almost time for your next dose, take only that dose. Do not take double or extra doses. Where should I keep my medicine? Keep out of the reach of children. Store at room temperature below 30 degrees C (86 degrees F). Keep container tightly closed. Throw away any unused medicine after the expiration date. What should I tell my health care provider before I take this medicine? They need to know if you have any of these conditions: -bone problems -cerebral disease -joint problems -irregular heartbeat -kidney disease -liver disease -myasthenia gravis -seizure disorder -tendon problems -an unusual or allergic reaction to ciprofloxacin, other antibiotics or medicines, foods, dyes, or preservatives - or trying to get -breast-feeding What should I watch for while using this medicine? Tell your doctor or health medical care administrator if your symptoms do not improve. Do not treat diarrhea with over the counter products. Contact your doctor if you have diarrhea that lasts more than 2 days or if it is severe and watery. You may get drowsy or dizzy. Do not drive, use machinery, or do anything that needs mental alertness until you know how this medicine affects you. Do not stand or sit up quickly, especially if you are an older patient. This reduces the risk of dizzy or fainting spells. This medicine can make you more sensitive to the sun. Keep out of the sun. If you cannot avoid being in the sun, wear protective clothing and use sunscreen. Do not use sun lamps or tanning beds/booths. Avoid antacids, aluminum, calcium, iron, magnesium, and zinc products for 6 hours before and 2 hours after taking a dose of this medicine. Hydrocodone Bitartrate, Acetaminophen Oral tablet What is this medicine? ACETAMINOPHEN; HYDROCODONE (a set a HAWA bhumika fen; nehal droe KOE done) is a pain reliever. It is used to treat mild to moderate pain. How should I use this medicine? Take this medicine by mouth. Swallow it with a full glass of water. Follow the directions on the prescription label. If the medicine upsets your stomach, take the medicine with food or milk. Do not take more than you are told to take. Talk to your commercial sales representative regarding the use of this medicine in children. This medicine is not approved for use in children. What side effects may I notice from receiving this medicine? Side effects that you should report to your doctor or health medical care administrator as soon as possible: allergic reactions like skin rash, itching or hives, swelling of the face, lips, or tongue breathing problems confusion feeling faint or lightheaded, falls stomach pain yellowing of the eyes or skin Side effects that usually do not require medical attention (report to your doctor or health medical care administrator if they continue or are bothersome): nausea, vomiting stomach upset What may interact with this medicine? alcohol antihistamines isoniazid medicines for depression, anxiety, or psychotic disturbances medicines for sleep muscle relaxants naltrexone narcotic medicines (opiates) for pain phenobarbital ritonavir tramadol What if I miss a dose? If you miss a dose, take it as soon as you can. If it is almost time for your next dose, take only that dose. Do not take double or extra doses. Where should I keep my medicine? Keep out of the reach of children. This medicine can be abused. Keep your medicine in a safe place to protect it from theft. Do not share this medicine with anyone. Selling or giving away this medicine is dangerous and against the law. Store at room temperature between 15 and 30 degrees C (59 and 86 degrees F). Protect from light. Keep container tightly closed. Throw away any unused medicine after the expiration date. Discard unused medicine and used packaging carefully. Pets and children can be harmed if they find used or lost packages. What should I tell my health care provider before I take this medicine? They need to know if you have any of these conditions: brain tumor Crohn's disease, inflammatory bowel disease, or ulcerative colitis drink more than 3 alcohol-containing drinks per day drug abuse or addiction head injury heart or circulation problems kidney disease or problems going to the bathroom liver disease lung disease, asthma, or breathing problems an unusual or allergic reaction to acetaminophen, hydrocodone, other opioid analgesics, other medicines, foods, dyes, or preservatives or trying to get breast-feeding What should I watch for while using this medicine? Tell your doctor or health medical care administrator if your pain does not go away, if it gets worse, or if you have new or a different type of pain. You may develop tolerance to the medicine. Tolerance means that you will need a higher dose of the medicine for pain relief. Tolerance is normal and is expected if you take the medicine for a long time. Do not suddenly stop taking your medicine because you may develop a severe reaction. Your body becomes used to the medicine. This does NOT mean you are addicted. Addiction is a behavior related to getting and using a drug for a non-medical reason. If you have pain, you have a medical reason to take pain medicine. Your doctor will tell you how much medicine to take. If your doctor wants you to stop the medicine, the dose will be slowly lowered over time to avoid any side effects. You may get drowsy or dizzy when you first start taking the medicine or change doses. Do not drive, use machinery, or do anything that may be dangerous until you know how the medicine affects you. Stand or sit up slowly. There are different types of narcotic medicines (opiates) for pain. If you take more than one type at the same time, you may have more side effects. Give your health care provider a list of all medicines you use. Your doctor will tell you how much medicine to take. Do not take more medicine than directed. Call emergency for help if you have problems breathing. The medicine will cause constipation. Try to have a bowel movement at least every 2 to 3 days. If you do not have a bowel movement for 3 days, call your doctor or health medical care administrator. Too much acetaminophen can be very dangerous. Do not take Tylenol (acetaminophen) or medicines that contain acetaminophen with this medicine. Many non-prescription medicines contain acetaminophen. Always read the labels carefully. Promethazine Hydrochloride Oral tablet What is this medicine? PROMETHAZINE (proe METH a zeen) is an antihistamine. It is used to treat allergic reactions and to treat or prevent nausea and vomiting from illness or motion sickness. It is also used to make you sleep before surgery, and to help treat pain or nausea after surgery. How should I use this medicine? Take this medicine by mouth with a glass of water. Follow the directions on the prescription label. Take your doses at regular intervals. Do not take your medicine more often than directed. Talk to your commercial sales representative regarding the use of this medicine in children. Special care may be needed. This medicine should not be given to infants and children younger than 2 years old. What side effects may I notice from receiving this medicine? Side effects that you should report to your doctor or health medical care administrator as soon as possible: blurred vision irregular heartbeat, palpitations or chest pain muscle or facial twitches pain or difficulty passing urine seizures skin rash slowed or shallow breathing unusual bleeding or bruising yellowing of the eyes or skin Side effects that usually do not require medical attention (report to your doctor or health medical care administrator if they continue or are bothersome): headache nightmares, agitation, nervousness, excitability, not able to sleep (these are more likely in children) stuffy nose What may interact with this medicine? Do not take this medicine with any of the following medications: medicines called MAO Inhibitors like Nardil, Parnate, Marplan, Eldepryl other phenothiazines like trimethobenzamide This medicine may also interact with the following medications: barbiturates like phenobarbital bromocriptine certain antidepressants certain antihistamines used in allergy or cold medicines epinephrine levodopa medicines for sleep medicines for mental problems and psychotic disturbances medicines for movement abnormalities as in Parkinson's disease, or for gastrointestinal problems muscle relaxants prescription pain medicines What if I miss a dose? If you miss a dose, take it as soon as you can. If it is almost time for your next dose, take only that dose. Do not take double or extra doses. Where should I keep my medicine? Keep out of the reach of children. Store at room temperature, between 20 and 25 degrees C (68 and 77 degrees F). Protect from light. Throw away any unused medicine after the expiration date. What should I tell my health care provider before I take this medicine? They need to know if you have any of these conditions: glaucoma high blood pressure or heart disease kidney disease liver disease lung or breathing disease, like asthma prostate trouble pain or difficulty passing urine seizures an unusual or allergic reaction to promethazine or phenothiazines, other medicines, foods, dyes, or preservatives or trying to get breast-feeding What should I watch for while using this medicine? Tell your doctor or health medical care administrator if your symptoms do not start to get better in 1 to 2 days. You may get drowsy or dizzy. Do not drive, use machinery, or do anything that needs mental alertness until you know how this medicine affects you. To reduce the risk of dizzy or fainting spells, do not stand or sit up quickly, especially if you are an older patient. Alcohol may increase dizziness and drowsiness. Avoid alcoholic drinks. Your mouth may get dry. Chewing sugarless gum or sucking hard candy, and drinking plenty of water may help. Contact your doctor if the problem does not go away or is severe. This medicine may cause dry eyes and blurred vision. If you wear contact lenses you may feel some discomfort. Lubricating drops may help. See your eye doctor if the problem does not go away or is severe. This medicine can make you more sensitive to the sun. Keep out of the sun. If you cannot avoid being in the sun, wear protective clothing and use sunscreen. Do not use sun lamps or tanning beds/booths. If you are diabetic, check your blood-sugar levels regularly. You have been given the following additional information: Vomiting (6Y-Adult) Diarrhea, Unk Cause (Adult) Report Pendg Abdominal Pain, Unknown Cause, (Male) Bladder Infection, Male (Adult) Dehydration (Adult) Ciprofloxacin Hydrochloride Oral tablet Hydrocodone Bitartrate, Acetaminophen Oral tablet Promethazine Hydrochloride Oral tablet (Electronically signed by Siva Ramirez Dr. 01/08/2017 21:37)
--- NOTE | 2017-01-08 21:37 | ED MAR SUMMARY ---
..... Medication Administration Record [facility] [address] [place] [address] Patient: CHEL FLORES Visit ID: [id number] 56y, M Weight: 86.1 kg Height/Length: 72 in BMI: 25.8 ALLERGIES: Codeine Start 09:46 01/06/2017 Quincy Mcclelland R.N., Stop 10:43 01/06/2017 Quincy Mcclelland R.N. Medication Administered: IV NS (SALINE), Dose: IV Fluids over 1 hour(s), Rate: 1000 mL/hr, Dispensed: 1000 mL bag, Site: #1 left forearm. Medication Ordered: IV NS : initial bolus none -, then 1000 mL/hr for X1 (NOW). Given 09:47 01/06/2017 Quincy Mcclelland R.N. Medication Administered: ZOFRAN [IVP] (ONDANSETRON HCL), Dose: 4 mg IVP over 2 minute(s), Site: #1 left forearm. Medication Ordered: Zofran IV 4 mg (NOW). Start 10:15 01/06/2017 Quincy Mcclelland R.N., Stop 11:47 01/06/2017 Quincy Mcclelland R.N. Medication Administered: IV NS (SALINE), Dose: IV Fluids over 1 hour(s), Rate: 1000 mL/hr, Dispensed: 1000 mL bag, Site: #1 left forearm. Medication Ordered: IV NS : initial bolus none -, then 1000 mL/hr for X1 (NOW); Routine. Given 10:53 01/06/2017 Quincy Mcclelland R.N. Medication Administered: PHENERGAN [IVP] (PROMETHAZINE HCL), Dose: 25 mg IVP over 3 minute(s), Site: #1 left forearm. Medication Ordered: Phenergan IV 25 mg (HIGH ALERT MEDICATION, NOW). Given 11:00 01/06/2017 Quincy Mcclelland R.N. Medication Administered: MORPHINE [IVP], Dose: 2 mg IVP over 2 minute(s), Site: #1 left forearm. Medication Ordered: Morphine IV 4 mg (HIGH ALERT MEDICATION, NOW). Given 11:50 01/06/2017 Quincy Mcclelland R.N. Medication Administered: MORPHINE [IVP], Dose: 2 mg IVP, Site: #1 left forearm. Medication Ordered: Morphine IV 4 mg (HIGH ALERT MEDICATION, NOW).
--- NOTE | 2017-01-08 21:37 | ED MAR SUMMARY ---
..... Medication Administration Record [facility] [address] [place] [address] Patient: CHEL FLORES Visit ID: [id number] 56y, M Weight: 86.1 kg Height/Length: 72 in BMI: 25.8 ALLERGIES: Codeine Start 09:46 01/06/2017 Quincy Mcclelland R.N., Stop 10:43 01/06/2017 Quincy Mcclelland R.N. Medication Administered: IV NS (SALINE), Dose: IV Fluids over 1 hour(s), Rate: 1000 mL/hr, Dispensed: 1000 mL bag, Site: #1 left forearm. Medication Ordered: IV NS : initial bolus none -, then 1000 mL/hr for X1 (NOW). Given 09:47 01/06/2017 Quincy Mcclelland R.N. Medication Administered: ZOFRAN [IVP] (ONDANSETRON HCL), Dose: 4 mg IVP over 2 minute(s), Site: #1 left forearm. Medication Ordered: Zofran IV 4 mg (NOW). Start 10:15 01/06/2017 Quincy Mcclelland R.N., Stop 11:47 01/06/2017 Quincy Mcclelland R.N. Medication Administered: IV NS (SALINE), Dose: IV Fluids over 1 hour(s), Rate: 1000 mL/hr, Dispensed: 1000 mL bag, Site: #1 left forearm. Medication Ordered: IV NS : initial bolus none -, then 1000 mL/hr for X1 (NOW); Routine. Given 10:53 01/06/2017 Quincy Mcclelland R.N. Medication Administered: PHENERGAN [IVP] (PROMETHAZINE HCL), Dose: 25 mg IVP over 3 minute(s), Site: #1 left forearm. Medication Ordered: Phenergan IV 25 mg (HIGH ALERT MEDICATION, NOW). Given 11:00 01/06/2017 Quincy Mcclelland R.N. Medication Administered: MORPHINE [IVP], Dose: 2 mg IVP over 2 minute(s), Site: #1 left forearm. Medication Ordered: Morphine IV 4 mg (HIGH ALERT MEDICATION, NOW). Given 11:50 01/06/2017 Quincy Mcclelland R.N. Medication Administered: MORPHINE [IVP], Dose: 2 mg IVP, Site: #1 left forearm. Medication Ordered: Morphine IV 4 mg (HIGH ALERT MEDICATION, NOW).
--- NOTE | 2017-01-08 21:37 | ED MED RECONCILIATION SUMMARY ---
Patient: CHEL FLORES Medication Reconciliation Report [facility] VisitID: [id number] [place] [address] 56y, M Registration Date/Time: 01/06/2017 Weight: 86.1 kg Height/Length: 72 in. BMI: 25.8 ALLERGIES: Codeine The patient's Home Medications are listed below: CONTINUE TAKING THE FOLLOWING MEDICATIONS: Hydrocodone-Acetaminophen Oral Meloxicam Oral The source(s) of the original Home Medication information: Not obtained. The following Medications were given to the patient in the Emergency Department: IV NS IV Fluids bolus 0, then 1000 mL/hr, administered: 01/06/2017 9:46:00 AM Zofran [IVP] IVP 4 mg, administered: 01/06/2017 9:47:00 AM IV NS IV Fluids bolus 0, then 1000 mL/hr, administered: 01/06/2017 10:15:00 AM PHENERGAN [IVP] IVP 25 mg, administered: 01/06/2017 10:53:00 AM Morphine [IVP] IVP 2 mg, administered: 01/06/2017 11:00:00 AM Morphine [IVP] IVP 2 mg, administered: 01/06/2017 11:50:00 AM The following Medications were prescribed to the patient: Cipro 500 mg: take 1 tab orally every 12 hours for 10 days. No refills. Substitution is permissible.(Disp 20 tabs) -- Siva Ramirez Dr. [place] 5 mg / 325 mg tablets: take 1 orally every 6 hours as needed for pain. Dispense twelve (12). No refill. Substitution is permissible. -- Siva Ramirez Dr. Phenergan 25 mg tablets: take 1 orally every 8 hours as needed for nausea or vomiting. Dispense twenty (20). No refill. Substitution is permissible.(Will make you sleepy. Use with caution.) -- Siva Ramirez Dr.
--- NOTE | 2017-01-08 21:37 | ED MED RECONCILIATION SUMMARY ---
Patient: CHEL FLORES Medication Reconciliation Report [facility] VisitID: [id number] [place] [address] 56y, M Registration Date/Time: 01/06/2017 Weight: 86.1 kg Height/Length: 72 in. BMI: 25.8 ALLERGIES: Codeine The patient's Home Medications are listed below: CONTINUE TAKING THE FOLLOWING MEDICATIONS: Hydrocodone-Acetaminophen Oral Meloxicam Oral The source(s) of the original Home Medication information: Not obtained. The following Medications were given to the patient in the Emergency Department: IV NS IV Fluids bolus 0, then 1000 mL/hr, administered: 01/06/2017 9:46:00 AM Zofran [IVP] IVP 4 mg, administered: 01/06/2017 9:47:00 AM IV NS IV Fluids bolus 0, then 1000 mL/hr, administered: 01/06/2017 10:15:00 AM PHENERGAN [IVP] IVP 25 mg, administered: 01/06/2017 10:53:00 AM Morphine [IVP] IVP 2 mg, administered: 01/06/2017 11:00:00 AM Morphine [IVP] IVP 2 mg, administered: 01/06/2017 11:50:00 AM The following Medications were prescribed to the patient: Cipro 500 mg: take 1 tab orally every 12 hours for 10 days. No refills. Substitution is permissible.(Disp 20 tabs) -- Siva Ramirez Dr. [place] 5 mg / 325 mg tablets: take 1 orally every 6 hours as needed for pain. Dispense twelve (12). No refill. Substitution is permissible. -- Siva Ramirez Dr. Phenergan 25 mg tablets: take 1 orally every 8 hours as needed for nausea or vomiting. Dispense twenty (20). No refill. Substitution is permissible.(Will make you sleepy. Use with caution.) -- Siva Ramirez Dr.
== END 2017-01-06 12:54 | disposition home or self-care (01) ==
LOC: ED SRH 09:18
DX: R11.2 Nausea with vomiting, unspecified (principal); R10.13 Epigastric pain; E86.0 Dehydration; N39.0 Urinary tract infection, site not specified; R19.7 Diarrhea, unspecified; Z88.5 Allergy status to narcotic agent
CPT/HCPCS: 90004; 90100; 90469; 92235; 92610; 95059